=== PATIENT | female | born 1980 | race Two or more races ===

== ENCOUNTER 2025-07-01 12:14 | Emergency (ER) | payer MEDICAID ==
[~2025-07-01] VITALS: Ht 157.5 cm; Wt 71.3 kg
--- NOTE | 2025-07-01 13:07 | ED.PDOC ---
Musculoskeletal HPI Comments This is a 44 year old female presenting to the ED with chief complaint of left shoulder pain. Patient reports that while being arrested 2 months ago, she had her left arm twisted and pulled hard on, causing pain to the left shoulder for some time. Patient relays that since then, she has had intermittent burning pains to her left shoulder with associated tingling. Patient states she has taken Ibuprofen with little relief noted. She has tried to follow-up, however does not have insurance so that she could not afford x-rays, so she is presenting here today for an x-ray. She is right-hand dominant. Patient denies any numbness, weakness, fall injury, new injury, or chest pain. Chief Complaint: Upper Extremity Time Seen by MD: 13:04 Reviewed Notes: Nurses Notes, Medications, Allergies Allergies: Coded Allergies: NO KNOWN ALLERGIES (Unverified , 07/01/25) Information Source: Patient Mode of Arrival: Ambulatory Location: Left Extremity Location: Shoulder Timing: Months Prehospital treatment: None Severity: Moderate Able to Move Extremity: Yes Bear Weight: Fully Pain: Moderate Mechanism: Twisting Circumstances: Other (Being arrested) Onset of Symptoms: After Trauma Symptoms: Pain DVT Risk Factors: NONE Last Tetanus: Unknown Associated signs and symptoms: Shoulder pain Past Medical History PAST MEDICAL HISTORY: Denies Surgical History: Denies all surgeries HOSPITAL SALES REPRESENTATIVE History: No Pertinent HOSPITAL SALES REPRESENTATIVE History Family History Family History: Reviewed,noncontributory to illness Social History Smoker: Non-Smoker Alcohol: Denies ETOH Use Drugs: Denies Drug Use Lives In: Home Constitutional: denies: chills, diaphoresis, fatigue, fever, malaise, sweats, weakness, others EENTM: denies: blurred vision, double vision, ear bleeding, ear discharge, ear drainage, ear pain, ear ringing, eye pain, eye redness, hearing loss, mouth pain, mouth swelling, nasal discharge, nose bleeding, nose congestion, nose pain, photophobia, tearing, throat pain, throat swelling, voice changes, others Respiratory: denies: cough, hemoptysis, orthopnea, SOB at rest, shortness of breath, SOB with excertion, stridor, wheezing, others Cardiovascular: denies: chest pain, dizzy spells, diaphoresis, Dyspnea on exertion, edema, irregular heart beat, left arm pain, lightheadedness, pa lpitations, PND, syncope, others Gastrointestinal: denies: abdomen distended, abdominal pain, blood streaked bowels, constipated, diarrhea, dysphagia, difficulty swallowing, hematemesis, melena, nausea, poor appetite, poor fluid intake, rectal bleeding, rectal pain, vomiting, others Genitourinary: denies: abnormal vagina bleeding, burning, dyspareunia, dysuria, flank pain, frequency, hematuria, incontinence, pain, , vagina discharge, urgency, others Neurological: denies: dizziness, fainting, headache, left sided numbness, left sided weakness, numbness, paresthesia, pre-existing deficit, right sided numbness, right sided weakness, seizure, speech problems, tingling, tremors, weakness, others Musculoskeletal: reports: others (Lt shoulder pain); denies: back pain, gout, j oint pain, joint swelling, muscle pain, muscle stiffness, neck pain Integumetry: denies: bruises, change in color, change in hair/nails, dryness, laceration, lesions, lumps, rash, wounds, others Allergic/Immunocompromised: denies: Difficulty Healing, Frequent Infections, Hives, Itching, others Hematologic/Lymphatic: denies: anemia, blood clots, easy bleeding, easy bruising, swollen glands, others Endocrine: denies: excessive hunger, excessive sweating, excessive thirst, excessive urination, flushing, intolerance to cold, intolerance to heat, unex plained weight gain, unexplained weight loss, others Psychiatric: denies: anxiety, bipolar disorder, depression, hopeless, panic disorder, schizophrenia, sleepless, suicidal, others All Other Systems: Reviewed and Negative Physical Exam General Appearance: No Apparent Distress, Normal HEENT: Normal ENT Inspection, Pharynx Normal, TMs Normal Neck: Full Range of Motion, Non-Tender, Normal, Normal Inspection Respiratory: Chest Non-Tender, Lungs Clear, No Accessory Muscle Use, No Respiratory Distress, Normal Breath Sounds Cardiovascular: No Edema, No JVD, No Murmur, No Gallop, Normal Peripheral Puls es, Regular Rate/Rhythm Breast Exam: Deferred Gastrointestinal: No Organomegaly, Non Tender, No Pulsatile Mass, Normal Bowel Sounds, Soft Genitalia: Deferred Pelvic: Deferred Rectal: Deferred Extremities: No calf tenderness, Normal capillary refill, Normal inspection, Normal range of motion, Non-tender, No pedal edema Musculoskeletal : Location: Left Extremity Location: Shoulder Apperance: Normal, Tenderness (Left shoulder tenderness to palpation) Neurologic: Alert, sheep boner II-XII nml as Tested, No Motor Deficits, Normal Affect, Normal Mood, No Sensory Deficits Cerebellar Function: Normal Reflexes: Normal Skin: Dry, Normal Color, Warm Lymphatic: No Adenopathy Was a procedure done? Was a procedure done?: No Differential Diagnosis EXT Differential Diagnosis: Fracture, Sprain, Dislocation, Contusion, Strain X-Ray, Labs, Meds, VS Vital Signs Date Time Temp Pulse Resp B/P (MAP) Pulse Ox O2 Delivery O2 Flow Rate FiO2 07/01/25 12:17 97.9 90 18 141/92 96 97.9 X-Ray, Labs, Meds, VS Comment Patient presents with intermittent left shoulder pain, ongoing for the past few months after her arm was twisted while being arrested 2 months ago. Vital signs stable and exam unremarkable besides mild left shoulder tenderness. Left shoulder x-ray to evaluate for fracture or dislocation Declined analgesia at this time Re-evaluation Social determinant surveillance affecting care: Social determinants of health that will affect the patient's care: Poor health literacy (additional time provided an explanation) Poor access to outpatient care/followup (provided outpatient resources) Time of 1ST Reevaluation: 13:30 Reevaluation 1ST: Unchanged Patient Education/Counseling: Diagnosis, Treatment Family Education/Counseling: No Family Present Departure 1 Departure Time of Disposition: 13:40 (On reassessment, patient's pain improved. X-ray negative for fracture or dislocation. Discussed with patient need for outpatient follow-up with orthopedics if her symptoms persist. Given strict return precautions PMD follow-up.) Impression: Primary Impression: Sprain of left shoulder Disposition: 01 HOME / SELF CARE / HOMELESS Condition: Stable Additional Instructions: Your x-rays were normal today. Follow up with orthopedics if your symptoms persist. Discharged With: Self Critical Care Note Critical Care Time?: No Stability Stability form required: No Heart Score Heart Score: Heart Score Response (Comments) Value History N/A 0 EKG N/A 0 Age N/A 0 Risk Factors N/A 0 Troponin N/A 0 Total 0 I personally scribed for DEAN EDWARD MD ([email or web address]) on 07/01/25 at 13:07. Electronically submitted by Kelvin Martinez ([email or web address]). DEAN EDWARD MD Jul 01, 2025 13:07
--- NOTE | 2025-07-01 13:25 | DVH ---
CLINICAL INDICATION: Shoulder pain TECHNIQUE: 3 radiographic views of the left shoulder were obtained. Comparison: None FINDINGS/IMPRESSION: No fracture or dislocation. No abnormal soft tissue calcifications.
[2025-07-01 14:25] VITALS: BP 138/77; PULSE 68; RESP 18; TEMP 97.9; O2SAT 98
== END 2025-07-01 14:28 | disposition home or self-care (01) ==
LOC: ER 12:14
DX: S43.402A Unspecified sprain of left shoulder joint, initial encounter (principal); X50.1XXA Overexertion from prolonged static or awkward postures, initial encounter; Y93.89 Activity, other specified; Y92.89 Other specified places as the place of occurrence of the external cause; Y99.8 Other external cause status
CPT/HCPCS: 73030